=== PATIENT | female | born 1940 | race Caucasian/White ===

== ENCOUNTER 2019-08-28 10:27 | Inpatient (IN) | payer OTHER, SELFPAY ==
[~2019-08-28] VITALS: Ht 157.5 cm; Wt 80.7 kg
[2019-08-28 10:31] VITALS: BP_SYST 167
[2019-08-28] MEDS ORDERED: LISI-600 PO (10:50)
[2019-08-28] MEDS ORDERED: DILT120C89 PO (10:50)
[2019-08-28] MEDS ORDERED: AMLO5TAB4 PO (10:50)
[2019-08-28] MEDS ORDERED: SSREG SUBCUT (10:52)
[2019-08-28] MEDS ORDERED: SIMV20TA2 PO (10:52)
[2019-08-28] MEDS ORDERED: DONE10TA44 PO (10:52)
[2019-08-28 11:11] LABS: HEMOGLOBIN 8.3 g/dL (12.0-16.0); MEAN CORPUSCULAR HEMOGLOBIN 30 pg (27-31); MEAN CORPUSCULAR HGB CONC 32 % (32-36); MEAN CORPUSCULAR VOLUME 93 fL (79.0-98.0); PLATELET COUNT (AUTO) 302 K/uL (130-430); RED CELL DISTRIBUTION WIDTH 15.5 % (9.0-15.0); WHITE BLOOD COUNT (AUTO) 15.1 K/uL (4.8-10.8)
[2019-08-28 11:32] LABS: ANION GAP 3 (5-15); CALCIUM 8.1 mg/dL (8.4-11.0); CHLORIDE 109 mmol/L (98-107); GLUCOSE 148 mg/dL (70-99); POTASSIUM 4.8 mmol/L (3.5-5.1); SODIUM SERUM 142 mmol/L (136-145); UREA NITROGEN, BLOOD 33 mg/dL (8-21)
[2019-08-28 11:33] LABS: ATYPICAL LYMPHOCYTES % 0 % (0-0); BAND % (MANUAL) 0 % (0-6); BASOPHILS % (MANUAL) 0 % (0-2); EOSINOPHILS % (MANUAL) 1 % (0-7); LYMPHOCYTES % (MANUAL) 20 % (20-46); MONOCYTES % (MANUAL) 3 % (0-11)
[2019-08-28 11:36] LABS: ALBUMIN 1.2 g/dL (3.4-4.8); ASPARTATE AMINOTRANSFERASE 18 U/L (10-37); PROTHROMBIN TIME 9.8 SECS (9.5-12.5)
[2019-08-28 11:40] LABS: BILIRUBIN,URINE NEGATIVE (NEGATIVE); BLOOD, URINE 2+ (NEGATIVE); CLARITY/URINE CLOUDY (CLEAR); COLOR,URINE YELLOW (YELLOW); GLUCOSE,URINE NEGATIVE (NEGATIVE); KETONES,URINE NEGATIVE (NEGATIVE); LEUKOCYTE ESTERASE ,URINE NEGATIVE (NEGATIVE); NITRITE, URINE NEGATIVE (NEGATIVE); PH,URINE 5.5 (5.0-8.0); PROTEIN URINE 3+ (NEGATIVE); UROBILINOGEN,URINE 0.2 (0.2-1.0)
[2019-08-28 11:46] LABS: ALANINE AMINOTRANSFERASE 12 U/L (12-78); TOTAL BILIRUBIN 0.1 mg/dL (0.0-1.0)
[2019-08-28 11:56] LABS: BACTERIA,URINE FEW /HPF (None Seen); URINE AMORPHOUS URATE 3+ /HPF (None Seen); WBC,URINE 0-3 /HPF (0-3)
[2019-08-28] MEDS ORDERED: DEXTROSE 50% JECT 50 ML DISP.SYRIN IVP PRN (14:15)
[2019-08-28] MEDS ORDERED: IPRATROPIUM BROM 0.5 MG/2.5 ML VIAL.NEB (ATROVENT) INH PRN (14:15)
[2019-08-28] MEDS ORDERED: FUROSEMIDE 20 MG/2 ML VIAL IVP ONE (14:15)
[2019-08-28] MEDS ORDERED: ALBUTEROL SULFATE 0.083% 2.5 MG/3 ML VIAL.NEB INH PRN (14:15)
[2019-08-28] MEDS: ALBUTEROL SULFATE 0.083% 2.5 MG/3 ML VIAL.NEB INH SCH (17:18)
[2019-08-28] MEDS: IPRATROPIUM BROM 0.5 MG/2.5 ML VIAL.NEB (ATROVENT) INH SCH (17:18)
[2019-08-28] MEDS: SIMVASTATIN 20 MG TABLET PO SCH (21:00)
[2019-08-28] MEDS ORDERED: PIPERACILLIN/TAZO 3.375 GM in NS 50 ML IV ONE (21:45)
[2019-08-28] MEDS ORDERED: NACL 0.9% 1,000 ML IV ONE (21:45)
[2019-08-28] MEDS ORDERED: PIPERACILLIN/TAZOBACTAM 3.375 GM/VIAL (ZOSYN) IV ONE (22:43)
[2019-08-28 23:05] VITALS: BP_SYST 152
[2019-08-28 23:15] VITALS: BP_SYST 152
[2019-08-29] VITALS (19 sets, daily range): BP systolic 141–183
[2019-08-29] MEDS: IPRATROPIUM BROM 0.5 MG/2.5 ML VIAL.NEB (ATROVENT) INH SCH ×4 (04:53→23:00)
[2019-08-29] MEDS: ALBUTEROL SULFATE 0.083% 2.5 MG/3 ML VIAL.NEB INH SCH ×4 (04:53→23:00)
[2019-08-29 08:45] LABS: TOTAL IRON BIND. CAPACITY 130 ug/dL (250-450)
[2019-08-29] MEDS: DILTIAZEM HCL 120 MG CAP.SR.24H PO SCH (09:11)
[2019-08-29] MEDS: HEPARIN SODIUM,PORCINE 5000 UNITS/ML VIAL IVP SCH ×2 (09:13→22:16)
[2019-08-29] MEDS: LISINOPRIL 20 MG TABLET PO SCH (09:45)
[2019-08-29] MEDS ORDERED: ONDANSETRON HCL 4 MG/2 ML VIAL IVP PRN (11:45)
[2019-08-29] MEDS ORDERED: ACETAMINOPHEN 325 MG TABLET PO PRN (11:45)
[2019-08-29] MEDS ORDERED: ALBUTEROL SULFATE 0.083% 2.5 MG/3 ML VIAL.NEB INH PRN (11:45)
[2019-08-29] MEDS ORDERED: LORazepam 2 MG/ML VIAL IVP PRN (11:45)
[2019-08-29] MEDS: HYDROcodone/ACETAMIN 5-325 MG TAB (NORCO/ VICODIN) PO PRN (13:00)
[2019-08-29] MEDS: INSULIN REGULAR, HUMAN 100 UNITS/ML, 10 ML VIAL (humuLIN R) SUBCUT PRN (13:13)
[2019-08-29] MEDS: cefTRIAXone 1 GM in D5W 50 ML IV SCH (18:45)
[2019-08-29] MEDS ORDERED: cloNIDine HCL 0.1 MG TABLET PO ONE (19:00)
[2019-08-29] MEDS ORDERED: cloNIDine HCL 0.2 MG TABLET PO PRN (19:00)
[2019-08-29] MEDS ORDERED: cefTRIAXone 1 GM IVPB PREMIX 50 ML IV ONE (20:12)
[2019-08-29] MEDS ORDERED: DOXYCYCLINE HYCLATE 100 MG VIAL IV ONE (20:13)
[2019-08-29] MEDS ORDERED: LINEZOLID 300 ML IV ONE (20:31)
[2019-08-29] MEDS: DOXYCYCLINE HYCLATE 100 MG in D5W 100 ML IV SCH (21:13)
[2019-08-29] MEDS: LINEZOLID 300 ML IV SCH (22:16)
[2019-08-29] MEDS: DONEPEZIL HCL 5 MG TABLET (ARICEPT) PO SCH (22:16)
[2019-08-29] MEDS: SIMVASTATIN 20 MG TABLET PO SCH (22:16)
[2019-08-29] MEDS: METOPROLOL TARTRATE 25 MG TABLET PO SCH (22:17)
[2019-08-30] VITALS: BP_SYST 155
[2019-08-30] MEDS: INSULIN REGULAR, HUMAN 100 UNITS/ML, 10 ML VIAL (humuLIN R) SUBCUT PRN ×3 (00:45→23:42)
[2019-08-30] MEDS: IPRATROPIUM BROM 0.5 MG/2.5 ML VIAL.NEB (ATROVENT) INH SCH ×6 (03:00→23:00)
[2019-08-30] MEDS: ALBUTEROL SULFATE 0.083% 2.5 MG/3 ML VIAL.NEB INH SCH ×6 (03:00→23:00)
[2019-08-30 08:09] VITALS: BP_SYST 171
[2019-08-30] MEDS ORDERED: FUROSEMIDE 20 MG/2 ML VIAL IVP SCH (09:00)
[2019-08-30] MEDS: LISINOPRIL 20 MG TABLET PO SCH (09:40)
[2019-08-30] MEDS: METOPROLOL TARTRATE 25 MG TABLET PO SCH ×2 (09:40→21:00)
[2019-08-30] MEDS: amLODIPine BESYLATE 5 MG TABLET PO SCH (09:40)
[2019-08-30] MEDS: DILTIAZEM HCL 120 MG CAP.SR.24H PO SCH (09:41)
[2019-08-30] MEDS: HEPARIN SODIUM,PORCINE 5000 UNITS/ML VIAL IVP SCH ×2 (09:43→21:00)
[2019-08-30] MEDS: DOXYCYCLINE HYCLATE 100 MG in D5W 100 ML IV SCH ×2 (10:17→21:00)
[2019-08-30] MEDS: LINEZOLID 300 ML IV SCH ×2 (10:17→21:00)
[2019-08-30 12:00] VITALS: BP_SYST 150
[2019-08-30 15:55] VITALS: BP_SYST 167
[2019-08-30] MEDS ORDERED: FUROSEMIDE 40 MG/4 ML VIAL IVP ONE (16:15)
[2019-08-30] MEDS: cefTRIAXone 1 GM in D5W 50 ML IV SCH (17:36)
[2019-08-30 19:45] VITALS: BP_SYST 173
[2019-08-30] MEDS: DONEPEZIL HCL 5 MG TABLET (ARICEPT) PO SCH (21:00)
[2019-08-30] MEDS: SIMVASTATIN 20 MG TABLET PO SCH (21:00)
[2019-08-30] MEDS: NYSTATIN 15 GM TOPICAL POWDER TP SCH (21:00)
[2019-08-30 23:45] VITALS: BP_SYST 170
[2019-08-31 01:01] VITALS: BP_SYST 150
[2019-08-31 02:00] VITALS: BP_SYST 144
[2019-08-31] MEDS: IPRATROPIUM BROM 0.5 MG/2.5 ML VIAL.NEB (ATROVENT) INH SCH ×5 (03:00→19:35)
[2019-08-31] MEDS: ALBUTEROL SULFATE 0.083% 2.5 MG/3 ML VIAL.NEB INH SCH ×5 (03:00→19:35)
[2019-08-31 08:18] LABS: BASOPHILS # (AUTO) 0.1 K/uL (0.0-0.2); BASOPHILS % (AUTO) 0.9 % (0.0-2.0); EOSINOPHILS # (AUTO) 0.1 K/uL (0.0-0.4); EOSINOPHILS % (AUTO) 1.3 % (0.0-4.0); HEMATOCRIT 29.2 % (36-48); HEMOGLOBIN 9.5 g/dL (12.0-16.0); LYMPHOCYTES # (AUTO) 0.9 K/uL (1.0-5.5); MEAN CORPUSCULAR HEMOGLOBIN 30 pg (27-31); MEAN CORPUSCULAR HGB CONC 32 % (32-36); MEAN CORPUSCULAR VOLUME 92 fL (79.0-98.0); MONOCYTES # (AUTO) 0.6 K/uL (0.0-1.0); MONOCYTES % (AUTO) 7.4 % (1.7-9.3); NEUTROPHILS # (AUTO) 6.2 K/uL (1.8-7.7); NEUTROPHILS % (AUTO) 79.4 % (40.0-70.0); PLATELET COUNT (AUTO) 267 K/uL (130-430); RED BLOOD CELL COUNT(AUTO) 3.17 MIL/uL (4.2-6.2); WHITE BLOOD COUNT (AUTO) 7.8 K/uL (4.8-10.8)
[2019-08-31 08:32] VITALS: BP_SYST 155
[2019-08-31 08:34] LABS: ALANINE AMINOTRANSFERASE 10 U/L (12-78); ANION GAP 7 (5-15); ASPARTATE AMINOTRANSFERASE 29 U/L (10-37); C-REACTIVE PROTEIN QUANT 5.4 mg/dL (0-0.5); CALCIUM 7.8 mg/dL (8.4-11.0); CHLORIDE 106 mmol/L (98-107); CREATININE 1.89 mg/dL (0.55-1.30); GLUCOSE 161 mg/dL (70-99); POTASSIUM 4.8 mmol/L (3.5-5.1); SODIUM SERUM 140 mmol/L (136-145); TOTAL BILIRUBIN 0.2 mg/dL (0.0-1.0); UREA NITROGEN, BLOOD 31 mg/dL (8-21)
[2019-08-31] MEDS: DOXYCYCLINE HYCLATE 100 MG in D5W 100 ML IV SCH ×2 (08:42→20:30)
[2019-08-31] MEDS: NYSTATIN 15 GM TOPICAL POWDER TP SCH ×2 (08:43→20:56)
[2019-08-31] MEDS: LINEZOLID 300 ML IV SCH ×2 (08:43→22:09)
[2019-08-31 08:59] LABS: ERYTHROCYTE SEDIMENTATION RATE 74 MM/HR (0-20)
[2019-08-31] MEDS: FUROSEMIDE 20 MG/2 ML VIAL IVP SCH (09:25)
[2019-08-31] MEDS: METOPROLOL TARTRATE 25 MG TABLET PO SCH ×2 (09:26→20:44)
[2019-08-31] MEDS: LISINOPRIL 20 MG TABLET PO SCH (09:26)
[2019-08-31] MEDS: DILTIAZEM HCL 120 MG CAP.SR.24H PO SCH (09:26)
[2019-08-31] MEDS: amLODIPine BESYLATE 5 MG TABLET PO SCH (09:26)
[2019-08-31] MEDS: HEPARIN SODIUM,PORCINE 5000 UNITS/ML VIAL IVP SCH ×2 (09:28→20:56)
[2019-08-31] MEDS: HYDROcodone/ACETAMIN 5-325 MG TAB (NORCO/ VICODIN) PO PRN (09:42)
[2019-08-31 12:00] VITALS: BP_SYST 127
[2019-08-31 14:14] LABS: TOTAL VOLUME 24HRS,URINE 900 mL
[2019-08-31 14:15] LABS: TPROTEIN U,24HR 2939.4 mg/24HR (0-130)
[2019-08-31 14:48] LABS: CREATININE 1.89 mg/dL (0.55-1.30)
[2019-08-31 14:49] LABS: CREATININE CLEARANCE,URINE 4.2 ml/min (80-120); PATIENT WEIGHT 190 LBS
[2019-08-31] MEDS: HYDROcodone/ACETAMIN 10-325 MG TAB PO PRN (16:09)
[2019-08-31 17:14] VITALS: BP_SYST 125
[2019-08-31] MEDS: cefTRIAXone 1 GM in D5W 50 ML IV SCH (18:43)
[2019-08-31] MEDS: INSULIN REGULAR, HUMAN 100 UNITS/ML, 10 ML VIAL (humuLIN R) SUBCUT PRN (18:49)
[2019-08-31 20:25] VITALS: BP_SYST 135
[2019-08-31] MEDS: SIMVASTATIN 20 MG TABLET PO SCH (20:43)
[2019-08-31] MEDS: DONEPEZIL HCL 5 MG TABLET (ARICEPT) PO SCH (20:43)
[2019-09-01 01:28] VITALS: BP_SYST 140
[2019-09-01] MEDS: INSULIN REGULAR, HUMAN 100 UNITS/ML, 10 ML VIAL (humuLIN R) SUBCUT PRN ×3 (06:01→23:09)
[2019-09-01 07:27] LABS: ANION GAP 2 (5-15); CALCIUM 7.7 mg/dL (8.4-11.0); CHLORIDE 106 mmol/L (98-107); CREATININE 2.02 mg/dL (0.55-1.30); GLUCOSE 161 mg/dL (70-99); POTASSIUM 4.3 mmol/L (3.5-5.1); SODIUM SERUM 141 mmol/L (136-145); UREA NITROGEN, BLOOD 32 mg/dL (8-21)
[2019-09-01] MEDS: IPRATROPIUM BROM 0.5 MG/2.5 ML VIAL.NEB (ATROVENT) INH SCH ×4 (07:32→19:27)
[2019-09-01] MEDS: ALBUTEROL SULFATE 0.083% 2.5 MG/3 ML VIAL.NEB INH SCH ×4 (07:32→19:24)
[2019-09-01 08:00] VITALS: BP_SYST 122
[2019-09-01] MEDS: BALSAM PERU/CASTOR OIL 60 GM OINT...G. TP SCH (09:00)
[2019-09-01 09:50] VITALS: BP_SYST 172
[2019-09-01] MEDS: amLODIPine BESYLATE 5 MG TABLET PO SCH (10:21)
[2019-09-01] MEDS: METOPROLOL TARTRATE 25 MG TABLET PO SCH ×2 (10:21→20:17)
[2019-09-01] MEDS: LISINOPRIL 20 MG TABLET PO SCH (10:21)
[2019-09-01] MEDS: LINEZOLID 300 ML IV SCH ×2 (10:23→20:18)
[2019-09-01] MEDS: LEVOFLOXACIN 250 MG TABLET PO SCH (10:23)
[2019-09-01] MEDS: FUROSEMIDE 20 MG/2 ML VIAL IVP SCH (10:23)
[2019-09-01] MEDS: DILTIAZEM HCL 120 MG CAP.SR.24H PO SCH (10:23)
[2019-09-01] MEDS ORDERED: HEPARIN SODIUM,PORCINE 5000 UNITS/ML VIAL SUBCUT ONE (12:00)
[2019-09-01] MEDS: NYSTATIN 15 GM TOPICAL POWDER TP SCH ×2 (12:06→20:18)
[2019-09-01 12:30] VITALS: BP_SYST 114
[2019-09-01 16:52] VITALS: BP_SYST 115
[2019-09-01] MEDS: HYDROcodone/ACETAMIN 10-325 MG TAB PO PRN (16:55)
[2019-09-01 19:30] VITALS: BP_SYST 155
[2019-09-01] MEDS: DONEPEZIL HCL 5 MG TABLET (ARICEPT) PO SCH (20:16)
[2019-09-01] MEDS: SIMVASTATIN 20 MG TABLET PO SCH (20:16)
[2019-09-01] MEDS: HEPARIN SODIUM,PORCINE 5000 UNITS/ML VIAL SUBCUT SCH (20:19)
[2019-09-02 00:59] VITALS: BP_SYST 128
[2019-09-02] MEDS: IPRATROPIUM BROM 0.5 MG/2.5 ML VIAL.NEB (ATROVENT) INH SCH (07:52)
[2019-09-02] MEDS: ALBUTEROL SULFATE 0.083% 2.5 MG/3 ML VIAL.NEB INH SCH (07:53)
[2019-09-02 08:00] VITALS: BP_SYST 139
[2019-09-02] MEDS: LINEZOLID 300 ML IV SCH (08:53)
[2019-09-02] MEDS: FUROSEMIDE 20 MG/2 ML VIAL IVP SCH (12:06)
[2019-09-02] MEDS: LISINOPRIL 20 MG TABLET PO SCH (12:07)
[2019-09-02] MEDS: METOPROLOL TARTRATE 25 MG TABLET PO SCH (12:07)
[2019-09-02] MEDS: amLODIPine BESYLATE 5 MG TABLET PO SCH (12:08)
[2019-09-02] MEDS: LEVOFLOXACIN 250 MG TABLET PO SCH (12:08)
[2019-09-02] MEDS: DILTIAZEM HCL 120 MG CAP.SR.24H PO SCH (12:09)
[2019-09-02] MEDS: HEPARIN SODIUM,PORCINE 5000 UNITS/ML VIAL SUBCUT SCH (12:11)
[2019-09-02] MEDS: HYDROcodone/ACETAMIN 10-325 MG TAB PO PRN (12:15)
[2019-09-02] MEDS: INSULIN REGULAR, HUMAN 100 UNITS/ML, 10 ML VIAL (humuLIN R) SUBCUT PRN (12:16)
[2019-09-02 12:55] VITALS: BP_SYST 125
[2019-09-02 16:31] VITALS: BP_SYST 127
[2019-09-02 17:10] VITALS: BP_SYST 127
[2019-09-02] MEDS: NYSTATIN 15 GM TOPICAL POWDER TP SCH (17:22)
[2019-09-02] MEDS: BALSAM PERU/CASTOR OIL 60 GM OINT...G. TP SCH (17:23)
== END 2019-09-02 18:05 | DRG 871 ==
LOC: EEVIPCON 10:27 → SED 10:27 → EEVIPCON 12:27 → SIC 12:27 → STU 08-29 17:59
PROVIDERS: ADMIT Internal Medicine Hospice and Palliative Medicine; ATTEND Internal Medicine Hospice and Palliative Medicine
PROC: 0W993ZZ Drainage of Right Pleural Cavity, Percutaneous Approach (ICD-10-PCS; principal; 2019-09-02)
DX: A41.9 Sepsis, unspecified organism (principal); I50.43 Acute on chronic combined systolic (congestive) and diastolic (congestive) heart failure; J96.00 Acute respiratory failure, unspecified whether with hypoxia or hypercapnia; G93.41 Metabolic encephalopathy; E43 Unspecified severe protein-calorie malnutrition; J96.01 Acute respiratory failure with hypoxia; I13.0 Hypertensive heart and chronic kidney disease with heart failure and stage 1 through stage 4 chronic kidney disease, or unspecified chronic kidney disease; N17.9 Acute kidney failure, unspecified; J91.8 Pleural effusion in other conditions classified elsewhere; M86.8X8 Other osteomyelitis, other site; Q61.02 Congenital multiple renal cysts; D64.9 Anemia, unspecified; E11.22 Type 2 diabetes mellitus with diabetic chronic kidney disease; E78.5 Hyperlipidemia, unspecified; E83.52 Hypercalcemia; F02.80 Dementia in other diseases classified elsewhere, unspecified severity, without behavioral disturbance, psychotic disturbance, mood disturbance, and anxiety; G30.9 Alzheimer's disease, unspecified; N18.9 Chronic kidney disease, unspecified; K21.9 Gastro-esophageal reflux disease without esophagitis; Z20.828 Contact with and (suspected) exposure to other viral communicable diseases; Z79.899 Other long term (current) drug therapy; Z68.32 Body mass index [BMI] 32.0-32.9, adult
CPT/HCPCS: 32555; 36415; 36600; 71045; 73502; 76770; 80048; 80053; 81000-TC; 82575-TC; 82803-TC; 82962; 83540-TC; 83550-TC; 83605; 83735-TC; 83880; 84100-TC; 84156; 84443-TC; 84484; 85007; 85025; 85027; 85610-TC; 85651-TC; 85730-TC; 86140; 86710; 87040-TC; 87081; 87086; 93005; 93306; 93971; 94640; 94760; 96374; 99285; C1729; G0378; J0696; J1644; J1815; J1940; J2020; J2060; J2543; J3490; J7030; J7060; J7613; U0002

== ENCOUNTER 2019-09-07 12:20 | Inpatient (IN) | payer OTHER, SELFPAY ==
[~2019-09-07] VITALS: Ht 157.5 cm; Wt 89.2 kg
[2019-09-07] VITALS (13 sets, daily range): BP systolic 84–181
[~2019-09-07 12:20] MED LIST: AMLO5TAB4 PO; DILT120C89 PO; DONE10TA44 PO; LISI-600 PO; SIMV20TA2 PO; SSREG SUBCUT
[2019-09-07] MEDS ORDERED: HEPA500015 SUBCUT (12:31)
[2019-09-07] MEDS ORDERED: PRAV40TA PO (12:31)
[2019-09-07 12:53] LABS: BASOPHILS % (AUTO) 0.4 % (0.0-2.0); EOSINOPHILS # (AUTO) 0.1 K/uL (0.0-0.4); HEMATOCRIT 25.8 % (36-48); HEMOGLOBIN 8.3 g/dL (12.0-16.0); LYMPHOCYTES # (AUTO) 1.6 K/uL (1.0-5.5); LYMPHOCYTES % (AUTO) 15.1 % (20.5-51.5); MEAN CORPUSCULAR HEMOGLOBIN 30 pg (27-31); MEAN CORPUSCULAR HGB CONC 32 % (32-36); MEAN CORPUSCULAR VOLUME 94 fL (79.0-98.0); MONOCYTES # (AUTO) 0.9 K/uL (0.0-1.0); MONOCYTES % (AUTO) 8.4 % (1.7-9.3); NEUTROPHILS # (AUTO) 7.8 K/uL (1.8-7.7); NEUTROPHILS % (AUTO) 75.1 % (40.0-70.0); PLATELET COUNT (AUTO) 193 K/uL (130-430); RED BLOOD CELL COUNT(AUTO) 2.76 MIL/uL (4.2-6.2); RED CELL DISTRIBUTION WIDTH 17.1 % (9.0-15.0); WHITE BLOOD COUNT (AUTO) 10.4 K/uL (4.8-10.8)
[2019-09-07 12:59] LABS: ANION GAP 1 (5-15); CHLORIDE 111 mmol/L (98-107); CREATININE 1.88 mg/dL (0.55-1.30); GLUCOSE 138 mg/dL (70-99); POTASSIUM 4.1 mmol/L (3.5-5.1); SODIUM SERUM 145 mmol/L (136-145); UREA NITROGEN, BLOOD 30 mg/dL (8-21)
[2019-09-07 13:08] LABS: ALANINE AMINOTRANSFERASE 15 U/L (12-78); ALBUMIN 1.2 g/dL (3.4-4.8); ASPARTATE AMINOTRANSFERASE 15 U/L (10-37); TOTAL BILIRUBIN 0.1 mg/dL (0.0-1.0)
[2019-09-07 13:10] LABS: BILIRUBIN,URINE NEGATIVE (NEGATIVE); BLOOD, URINE NEGATIVE (NEGATIVE); CLARITY/URINE CLEAR (CLEAR); COLOR,URINE YELLOW (YELLOW); GLUCOSE,URINE NEGATIVE (NEGATIVE); KETONES,URINE NEGATIVE (NEGATIVE); LEUKOCYTE ESTERASE ,URINE 1+ (NEGATIVE); NITRITE, URINE NEGATIVE (NEGATIVE); PROTEIN URINE NEGATIVE (NEGATIVE); UROBILINOGEN,URINE 0.2 (0.2-1.0)
[2019-09-07 13:18] LABS: BACTERIA,URINE MODERATE /HPF (None Seen); RBC,URINE 0-3 /HPF (0-3)
[2019-09-07] MEDS ORDERED: cefTRIAXone 1 GM IVPB PREMIX 50 ML IV ONE (14:15)
[2019-09-07] MEDS ORDERED: ALBUTEROL SULFATE 0.083% 2.5 MG/3 ML VIAL.NEB INH PRN (16:30)
[2019-09-07] MEDS ORDERED: IPRATROPIUM BROM 0.5 MG/2.5 ML VIAL.NEB (ATROVENT) INH PRN (16:30)
[2019-09-07] MEDS ORDERED: NS 500 ML IV ONE (17:45)
[2019-09-07] MEDS ORDERED: PROPOFOL 200MG/ 20ML VIAL (DIPRIVAN) IV ONE (18:00)
[2019-09-07] MEDS: PROPOFOL DRIP 1000 MG/ 100 ML BTL IV PRN (18:13)
[2019-09-07] MEDS ORDERED: SUCCINYLCHOLINE CHLORIDE 20 MG/ML(QUELICIN) IVP ONE (18:50)
[2019-09-07] MEDS ORDERED: ETOMIDATE 20 MG/ 10 ML VIAL (AMIDATE) IVP ONE (18:50)
[2019-09-07] MEDS: IPRATROPIUM BROM 0.5 MG/2.5 ML VIAL.NEB (ATROVENT) INH SCH ×2 (19:30→23:00)
[2019-09-07] MEDS: ALBUTEROL SULFATE 0.083% 2.5 MG/3 ML VIAL.NEB INH SCH ×2 (19:30→23:00)
[2019-09-07] MEDS ORDERED: NS 250 ML IV ONE (20:45)
[2019-09-07] MEDS: FAMOTIDINE PF 20 MG/2 ML VIAL IVP SCH (21:07)
[2019-09-07] MEDS: HEPARIN SODIUM,PORCINE 5000 UNITS/ML VIAL SUBCUT SCH (21:07)
[2019-09-07] MEDS ORDERED: PIPERACILLIN/TAZOBACTAM 2.25 GM VIAL IV ONE (22:59)
[2019-09-08] VITALS (32 sets, daily range): BP systolic 111–180
[2019-09-08] MEDS: PIPERACILLIN/TAZO 2.25G/DEX-IS 50 ML IV SCH ×4 (00:09→18:20)
[2019-09-08] MEDS: PROPOFOL DRIP 1000 MG/ 100 ML BTL IV PRN ×4 (00:12→20:54)
[2019-09-08] MEDS ORDERED: PIPERACILLIN/TAZOBACTAM 2.25 GM VIAL IV ONE (05:29)
[2019-09-08] MEDS: ALBUTEROL SULFATE 0.083% 2.5 MG/3 ML VIAL.NEB INH SCH ×3 (09:47→23:00)
[2019-09-08] MEDS: IPRATROPIUM BROM 0.5 MG/2.5 ML VIAL.NEB (ATROVENT) INH SCH ×3 (09:48→23:00)
[2019-09-08] MEDS ORDERED: fentaNYL CITRATE/PF 100 MCG/2 ML AMP IVP ONE (10:00)
[2019-09-08] MEDS ORDERED: MIDAZOLAM HCL 5 MG/5 ML VIAL IVP ONE (10:00)
[2019-09-08] MEDS: HEPARIN SODIUM,PORCINE 5000 UNITS/ML VIAL SUBCUT SCH ×2 (10:20→20:55)
[2019-09-08] MEDS: DILTIAZEM HCL 120 MG CAP.SR.24H PO SCH (10:20)
[2019-09-08] MEDS: FAMOTIDINE PF 20 MG/2 ML VIAL IVP SCH ×2 (10:21→20:52)
[2019-09-08] MEDS: FUROSEMIDE 20 MG/2 ML VIAL IVP SCH (10:21)
[2019-09-08 11:23] LABS: BASOPHILS % (AUTO) 0.5 % (0.0-2.0); EOSINOPHILS # (AUTO) 0.1 K/uL (0.0-0.4); EOSINOPHILS % (AUTO) 0.8 % (0.0-4.0); HEMOGLOBIN 7.2 g/dL (12.0-16.0); LYMPHOCYTES # (AUTO) 0.8 K/uL (1.0-5.5); LYMPHOCYTES % (AUTO) 9.8 % (20.5-51.5); MEAN CORPUSCULAR HEMOGLOBIN 31 pg (27-31); MEAN CORPUSCULAR HGB CONC 33 % (32-36); MEAN CORPUSCULAR VOLUME 92 fL (79.0-98.0); MONOCYTES # (AUTO) 0.8 K/uL (0.0-1.0); MONOCYTES % (AUTO) 10.6 % (1.7-9.3); NEUTROPHILS # (AUTO) 6.3 K/uL (1.8-7.7); NEUTROPHILS % (AUTO) 78.3 % (40.0-70.0); PLATELET COUNT (AUTO) 147 K/uL (130-430); RED BLOOD CELL COUNT(AUTO) 2.35 MIL/uL (4.2-6.2); RED CELL DISTRIBUTION WIDTH 16.2 % (9.0-15.0)
[2019-09-08 11:27] LABS: HEMATOCRIT 21.5 % (36-48)
[2019-09-08 11:47] LABS: ALANINE AMINOTRANSFERASE 11 U/L (12-78); ALBUMIN 1.1 g/dL (3.4-4.8); ANION GAP 6 (5-15); ASPARTATE AMINOTRANSFERASE 15 U/L (10-37); CALCIUM 7.5 mg/dL (8.4-11.0); CHLORIDE 107 mmol/L (98-107); CREATININE 1.91 mg/dL (0.55-1.30); GLUCOSE 176 mg/dL (70-99); POTASSIUM 3.8 mmol/L (3.5-5.1); SODIUM SERUM 140 mmol/L (136-145); TOTAL BILIRUBIN 0.1 mg/dL (0.0-1.0); UREA NITROGEN, BLOOD 34 mg/dL (8-21)
[2019-09-08] MEDS: fentaNYL CITRATE/PF 100 MCG/2 ML AMP IVP PRN (15:55)
[2019-09-08 18:39] LABS: APPEARANCE,SPUN,BODY FLUID CLEAR (CLEAR); BF APPEARANCE UNSPUN HAZY (CLEAR); BODY FLUID COLOR YELLOW (LT YELLOW); BODY FLUID SOURCE/ TYPE PLEURAL; BODY FLUID TOTAL VOLUME 1025 mL; SOURCE/TYPE ,BODY FLUID PLEURAL
[2019-09-08] MEDS: NACL 0.9% 1,000 ML IV SCH (20:52)
[2019-09-08 22:52] LABS: WBC, BODY FLUID 40 /uL
[2019-09-08 22:53] LABS: EOSINOPHIL, BODY FLUID 0 %; LYMPHOCYTES, BODY FLUID 9 %; MONOCYTES,BODY FLUID 66 %; NEUTROPHIL, BODY FLUID 25 %; RBC, BODY FLUID 583 /uL
[2019-09-09] VITALS (32 sets, daily range): BP systolic 110–183
[2019-09-09] MEDS: PIPERACILLIN/TAZO 2.25G/DEX-IS 50 ML IV SCH ×4 (00:23→17:42)
[2019-09-09] MEDS: MIDAZOLAM HCL 2 MG/2 ML VIAL (VERSED) IVP PRN ×3 (00:45→17:39)
[2019-09-09] MEDS: PROPOFOL DRIP 1000 MG/ 100 ML BTL IV PRN ×2 (01:51→08:05)
[2019-09-09] MEDS: IPRATROPIUM BROM 0.5 MG/2.5 ML VIAL.NEB (ATROVENT) INH SCH ×6 (03:00→23:00)
[2019-09-09] MEDS: ALBUTEROL SULFATE 0.083% 2.5 MG/3 ML VIAL.NEB INH SCH ×6 (03:00→23:00)
[2019-09-09 05:44] LABS: BASOPHILS % (AUTO) 0.5 % (0.0-2.0); EOSINOPHILS # (AUTO) 0.2 K/uL (0.0-0.4); EOSINOPHILS % (AUTO) 1.6 % (0.0-4.0); HEMATOCRIT 26.6 % (36-48); HEMOGLOBIN 8.8 g/dL (12.0-16.0); LYMPHOCYTES # (AUTO) 1.4 K/uL (1.0-5.5); LYMPHOCYTES % (AUTO) 14.5 % (20.5-51.5); MEAN CORPUSCULAR HEMOGLOBIN 30 pg (27-31); MEAN CORPUSCULAR HGB CONC 33 % (32-36); MEAN CORPUSCULAR VOLUME 90 fL (79.0-98.0); MONOCYTES # (AUTO) 1.1 K/uL (0.0-1.0); MONOCYTES % (AUTO) 11.1 % (1.7-9.3); NEUTROPHILS % (AUTO) 72.3 % (40.0-70.0); PLATELET COUNT (AUTO) 148 K/uL (130-430); RED BLOOD CELL COUNT(AUTO) 2.95 MIL/uL (4.2-6.2); WHITE BLOOD COUNT (AUTO) 9.7 K/uL (4.8-10.8)
[2019-09-09 06:07] LABS: ALANINE AMINOTRANSFERASE 11 U/L (12-78); ALBUMIN 1.2 g/dL (3.4-4.8); ANION GAP 4 (5-15); ASPARTATE AMINOTRANSFERASE 13 U/L (10-37); CALCIUM 7.6 mg/dL (8.4-11.0); CHLORIDE 108 mmol/L (98-107); CREATININE 2.08 mg/dL (0.55-1.30); GLUCOSE 207 mg/dL (70-99); POTASSIUM 3.7 mmol/L (3.5-5.1); SODIUM SERUM 141 mmol/L (136-145); TOTAL BILIRUBIN 0.2 mg/dL (0.0-1.0); UREA NITROGEN, BLOOD 35 mg/dL (8-21)
[2019-09-09] MEDS ORDERED: PROPOFOL DRIP 100 ML IV PRN (07:00)
[2019-09-09] MEDS: FAMOTIDINE PF 20 MG/2 ML VIAL IVP SCH ×2 (08:00→20:52)
[2019-09-09] MEDS: FUROSEMIDE 20 MG/2 ML VIAL IVP SCH (08:01)
[2019-09-09] MEDS: DILTIAZEM HCL 120 MG CAP.SR.24H PO SCH (08:26)
[2019-09-09] MEDS: HEPARIN SODIUM,PORCINE 5000 UNITS/ML VIAL SUBCUT SCH ×2 (08:28→20:53)
[2019-09-09] MEDS: NACL 0.9% 1,000 ML IV SCH (08:30)
[2019-09-09] MEDS: fentaNYL CITRATE/PF 100 MCG/2 ML AMP IVP PRN ×2 (09:33→14:07)
[2019-09-09 14:19] LABS: BODY FLUID GLUCOSE 151 mg/dL; BODY FLUID TOTAL PROTEIN 1.5 g/dL
[2019-09-09] MEDS ORDERED: MENTHOL/ZINC OXIDE 113 GM OINT. TP PRN (17:00)
[2019-09-09] MEDS: NYSTATIN 15 GM TOPICAL POWDER TP SCH (21:25)
[2019-09-10] VITALS (29 sets, daily range): BP systolic 106–199
[2019-09-10] MEDS: PIPERACILLIN/TAZO 2.25G/DEX-IS 50 ML IV SCH ×4 (00:05→17:48)
[2019-09-10] MEDS: fentaNYL CITRATE/PF 100 MCG/2 ML AMP IVP PRN (00:06)
[2019-09-10] MEDS: NACL 0.9% 1,000 ML IV SCH (01:52)
[2019-09-10] MEDS: PROPOFOL DRIP 1000 MG/ 100 ML BTL IV PRN (02:57)
[2019-09-10] MEDS: ALBUTEROL SULFATE 0.083% 2.5 MG/3 ML VIAL.NEB INH SCH ×5 (03:00→23:48)
[2019-09-10] MEDS: IPRATROPIUM BROM 0.5 MG/2.5 ML VIAL.NEB (ATROVENT) INH SCH ×5 (03:00→23:48)
[2019-09-10] MEDS ORDERED: hydrALAZINE HCL 20 MG/ML VIAL IVP ONE (03:45)
[2019-09-10] MEDS: DILTIAZEM HCL 120 MG CAP.SR.24H PO SCH (09:54)
[2019-09-10] MEDS: FUROSEMIDE 20 MG/2 ML VIAL IVP SCH (09:55)
[2019-09-10] MEDS: HEPARIN SODIUM,PORCINE 5000 UNITS/ML VIAL SUBCUT SCH ×2 (09:56→21:36)
[2019-09-10] MEDS: NYSTATIN 15 GM TOPICAL POWDER TP SCH ×2 (09:59→21:36)
[2019-09-10] MEDS: FAMOTIDINE PF 20 MG/2 ML VIAL IVP SCH ×2 (09:59→21:35)
[2019-09-10 10:13] LABS: ANION GAP 7 (5-15); CALCIUM 7.3 mg/dL (8.4-11.0); CHLORIDE 109 mmol/L (98-107); CREATININE 2.04 mg/dL (0.55-1.30); GLUCOSE 188 mg/dL (70-99); POTASSIUM 3.3 mmol/L (3.5-5.1); SODIUM SERUM 144 mmol/L (136-145); UREA NITROGEN, BLOOD 31 mg/dL (8-21)
[2019-09-10] MEDS ORDERED: IPRATROPIUM BROM 0.5 MG/2.5 ML VIAL.NEB (ATROVENT) INH PRN (15:00)
[2019-09-10] MEDS ORDERED: ALBUTEROL SULFATE 0.083% 2.5 MG/3 ML VIAL.NEB INH PRN (15:00)
[2019-09-10] MEDS ORDERED: KCL 40 mEq in 100 mL (PREMIX) 100 ML IV ONE (16:30)
[2019-09-10] MEDS: hydrALAZINE HCL 20 MG/ML VIAL IVP PRN (20:40)
[2019-09-11] VITALS (22 sets, daily range): BP systolic 130–177
[2019-09-11] MEDS: PIPERACILLIN/TAZO 2.25G/DEX-IS 50 ML IV SCH ×5 (00:18→23:35)
[2019-09-11 05:54] LABS: BASOPHILS # (AUTO) 0.1 K/uL (0.0-0.2); BASOPHILS % (AUTO) 0.6 % (0.0-2.0); EOSINOPHILS # (AUTO) 0.1 K/uL (0.0-0.4); EOSINOPHILS % (AUTO) 1.4 % (0.0-4.0); HEMATOCRIT 26.4 % (36-48); HEMOGLOBIN 8.8 g/dL (12.0-16.0); LYMPHOCYTES # (AUTO) 1.5 K/uL (1.0-5.5); LYMPHOCYTES % (AUTO) 16.6 % (20.5-51.5); MEAN CORPUSCULAR HEMOGLOBIN 30 pg (27-31); MEAN CORPUSCULAR HGB CONC 33 % (32-36); MEAN CORPUSCULAR VOLUME 91 fL (79.0-98.0); MONOCYTES % (AUTO) 10.3 % (1.7-9.3); NEUTROPHILS # (AUTO) 6.5 K/uL (1.8-7.7); NEUTROPHILS % (AUTO) 71.1 % (40.0-70.0); PLATELET COUNT (AUTO) 143 K/uL (130-430); RED BLOOD CELL COUNT(AUTO) 2.91 MIL/uL (4.2-6.2); RED CELL DISTRIBUTION WIDTH 17.4 % (9.0-15.0); WHITE BLOOD COUNT (AUTO) 9.2 K/uL (4.8-10.8)
[2019-09-11] MEDS: hydrALAZINE HCL 20 MG/ML VIAL IVP PRN ×3 (07:08→23:36)
[2019-09-11] MEDS: IPRATROPIUM BROM 0.5 MG/2.5 ML VIAL.NEB (ATROVENT) INH SCH ×5 (07:22→23:48)
[2019-09-11] MEDS: ALBUTEROL SULFATE 0.083% 2.5 MG/3 ML VIAL.NEB INH SCH ×5 (07:23→23:48)
[2019-09-11] MEDS: DILTIAZEM HCL 120 MG CAP.SR.24H PO SCH (10:16)
[2019-09-11] MEDS: FAMOTIDINE PF 20 MG/2 ML VIAL IVP SCH ×2 (10:17→22:02)
[2019-09-11] MEDS: FUROSEMIDE 20 MG/2 ML VIAL IVP SCH (10:17)
[2019-09-11] MEDS: NACL 0.9% 1,000 ML IV SCH (10:18)
[2019-09-11] MEDS: HEPARIN SODIUM,PORCINE 5000 UNITS/ML VIAL SUBCUT SCH ×2 (10:19→22:05)
[2019-09-11] MEDS: NYSTATIN 15 GM TOPICAL POWDER TP SCH ×2 (10:20→22:03)
[2019-09-12 00:14] VITALS: BP_SYST 189
[2019-09-12] MEDS: IPRATROPIUM BROM 0.5 MG/2.5 ML VIAL.NEB (ATROVENT) INH SCH ×6 (02:09→23:20)
[2019-09-12] MEDS: ALBUTEROL SULFATE 0.083% 2.5 MG/3 ML VIAL.NEB INH SCH ×6 (02:09→23:20)
[2019-09-12 04:00] VITALS: BP_SYST 148
[2019-09-12] MEDS: PIPERACILLIN/TAZO 2.25G/DEX-IS 50 ML IV SCH ×3 (05:14→17:33)
[2019-09-12 08:00] VITALS: BP_SYST 157
[2019-09-12] MEDS: NACL 0.9% 1,000 ML IV SCH (08:43)
[2019-09-12] MEDS: FAMOTIDINE PF 20 MG/2 ML VIAL IVP SCH ×2 (08:44→21:40)
[2019-09-12] MEDS: FUROSEMIDE 20 MG/2 ML VIAL IVP SCH (08:44)
[2019-09-12] MEDS: NYSTATIN 15 GM TOPICAL POWDER TP SCH ×2 (08:45→21:39)
[2019-09-12] MEDS: HEPARIN SODIUM,PORCINE 5000 UNITS/ML VIAL SUBCUT SCH ×2 (08:45→21:42)
[2019-09-12] MEDS: DILTIAZEM HCL 120 MG CAP.SR.24H PO SCH ×2 (08:46→12:31)
[2019-09-12 12:43] VITALS: BP_SYST 148
[2019-09-12] MEDS: hydrALAZINE HCL 20 MG/ML VIAL IVP PRN (15:21)
[2019-09-12 17:13] VITALS: BP_SYST 151
[2019-09-12 20:00] VITALS: BP_SYST 146
[2019-09-13] VITALS (7 sets, daily range): BP systolic 141–188
[2019-09-13] MEDS: PIPERACILLIN/TAZO 2.25G/DEX-IS 50 ML IV SCH ×3 (00:42→11:34)
[2019-09-13] MEDS: hydrALAZINE HCL 20 MG/ML VIAL IVP PRN ×3 (00:43→20:51)
[2019-09-13] MEDS: ZOLPIDEM TARTRATE 5 MG TABLET PO PRN ×2 (01:28→20:50)
[2019-09-13] MEDS: ALBUTEROL SULFATE 0.083% 2.5 MG/3 ML VIAL.NEB INH SCH ×6 (05:46→23:05)
[2019-09-13] MEDS: IPRATROPIUM BROM 0.5 MG/2.5 ML VIAL.NEB (ATROVENT) INH SCH ×6 (05:47→23:05)
[2019-09-13] MEDS: DILTIAZEM HCL 120 MG CAP.SR.24H PO SCH (08:09)
[2019-09-13] MEDS: FUROSEMIDE 20 MG/2 ML VIAL IVP SCH (08:10)
[2019-09-13] MEDS: FAMOTIDINE PF 20 MG/2 ML VIAL IVP SCH ×2 (08:10→20:50)
[2019-09-13] MEDS: NACL 0.9% 1,000 ML IV SCH (08:12)
[2019-09-13] MEDS: HEPARIN SODIUM,PORCINE 5000 UNITS/ML VIAL SUBCUT SCH ×2 (08:16→20:49)
[2019-09-13] MEDS: NYSTATIN 15 GM TOPICAL POWDER TP SCH ×2 (08:17→20:50)
[2019-09-13] MEDS ORDERED: cloNIDine HCL 0.1 MG TABLET PO ONE (11:15)
[2019-09-13] MEDS ORDERED: FUROSEMIDE 20 MG/2 ML VIAL IVP ONE (11:15)
[2019-09-13] MEDS ORDERED: amLODIPine BESYLATE 10 MG TABLET PO ONE (12:00)
[2019-09-13] MEDS ORDERED: cloNIDine HCL 0.1 MG TABLET PO PRN (12:15)
[2019-09-13] MEDS ORDERED: LEVOFLOXACIN 500 MG TABLET PO ONE (13:00)
[2019-09-14 00:37] VITALS: BP_SYST 143
[2019-09-14] MEDS: ALBUTEROL SULFATE 0.083% 2.5 MG/3 ML VIAL.NEB INH SCH ×5 (03:36→19:50)
[2019-09-14] MEDS: IPRATROPIUM BROM 0.5 MG/2.5 ML VIAL.NEB (ATROVENT) INH SCH ×5 (03:36→19:50)
[2019-09-14 08:00] VITALS: BP_SYST 163
[2019-09-14] MEDS ORDERED: LEVOFLOXACIN 500 MG TABLET PO SCH (09:00)
[2019-09-14] MEDS ORDERED: amLODIPine BESYLATE 10 MG TABLET PO SCH (09:00)
[2019-09-14] MEDS: DILTIAZEM HCL 120 MG CAP.SR.24H PO SCH (09:06)
[2019-09-14] MEDS: FAMOTIDINE PF 20 MG/2 ML VIAL IVP SCH ×2 (09:07→20:12)
[2019-09-14] MEDS: FUROSEMIDE 20 MG/2 ML VIAL IVP SCH (09:08)
[2019-09-14] MEDS: NYSTATIN 15 GM TOPICAL POWDER TP SCH ×2 (09:10→20:13)
[2019-09-14] MEDS: HEPARIN SODIUM,PORCINE 5000 UNITS/ML VIAL SUBCUT SCH ×2 (09:12→20:28)
[2019-09-14 12:16] VITALS: BP_SYST 159
[2019-09-14] MEDS ORDERED: LEVO500T89 PO (13:56)
[2019-09-14 16:54] VITALS: BP_SYST 151
[2019-09-14 19:22] VITALS: BP_SYST 163
[2019-09-14 20:29] VITALS: BP_SYST 169
[2019-09-14] MEDS: hydrALAZINE HCL 25 MG TABLET PO ONE ×2 (21:00→21:09)
[2019-09-14] MEDS: hydrALAZINE HCL 20 MG/ML VIAL IVP PRN (21:13)
== END 2019-09-14 21:50 | disposition home health service (06) | DRG 871 ==
LOC: SED 12:20 → EEVIPCON 14:57 → STU 14:57 → SIC 16:20 → STU 09-11 18:15 → SMU 09-13 12:57
PROVIDERS: ADMIT Internal Medicine Hospice and Palliative Medicine; ATTEND Internal Medicine Hospice and Palliative Medicine
PROC: 5A1945Z Respiratory Ventilation, 24-96 Consecutive Hours (ICD-10-PCS; principal; 2019-09-07)
PROC: 02HV33Z Insertion of Infusion Device into Superior Vena Cava, Percutaneous Approach (ICD-10-PCS; 2019-09-07)
PROC: 0BH17EZ Insertion of Endotracheal Airway into Trachea, Via Natural or Artificial Opening (ICD-10-PCS; 2019-09-07)
PROC: B548ZZA Ultrasonography of Superior Vena Cava, Guidance (ICD-10-PCS; 2019-09-07)
PROC: 5A09357 Assistance with Respiratory Ventilation, Less than 24 Consecutive Hours, Continuous Positive Airway Pressure (ICD-10-PCS; 2019-09-07)
PROC: 0W993ZZ Drainage of Right Pleural Cavity, Percutaneous Approach (ICD-10-PCS; 2019-09-08)
PROC: 30233N1 Transfusion of Nonautologous Red Blood Cells into Peripheral Vein, Percutaneous Approach (ICD-10-PCS; 2019-09-08)
DX: A41.9 Sepsis, unspecified organism (principal); J96.21 Acute and chronic respiratory failure with hypoxia; E43 Unspecified severe protein-calorie malnutrition; J69.0 Pneumonitis due to inhalation of food and vomit; J96.22 Acute and chronic respiratory failure with hypercapnia; I13.0 Hypertensive heart and chronic kidney disease with heart failure and stage 1 through stage 4 chronic kidney disease, or unspecified chronic kidney disease; N39.0 Urinary tract infection, site not specified; E87.2 Acidosis; N17.9 Acute kidney failure, unspecified; J91.8 Pleural effusion in other conditions classified elsewhere; J44.1 Chronic obstructive pulmonary disease with (acute) exacerbation; K21.9 Gastro-esophageal reflux disease without esophagitis; G30.9 Alzheimer's disease, unspecified; F32.9 Major depressive disorder, single episode, unspecified; F02.80 Dementia in other diseases classified elsewhere, unspecified severity, without behavioral disturbance, psychotic disturbance, mood disturbance, and anxiety; E78.5 Hyperlipidemia, unspecified; E11.22 Type 2 diabetes mellitus with diabetic chronic kidney disease; R55 Syncope and collapse; D63.1 Anemia in chronic kidney disease; I50.9 Heart failure, unspecified; N18.9 Chronic kidney disease, unspecified; Z79.899 Other long term (current) drug therapy; Z86.718 Personal history of other venous thrombosis and embolism; Z87.01 Personal history of pneumonia (recurrent); Z86.14 Personal history of Methicillin resistant Staphylococcus aureus infection; Z68.36 Body mass index [BMI] 36.0-36.9, adult
CPT/HCPCS: 32555; 36415; 36600; 70450-TC; 71045; 76604; 80048; 80053; 81000-TC; 82042; 82803-TC; 82947-TC; 82962; 83036; 83605; 83880; 84157-TC; 84484; 85025; 85730-TC; 86886; 86900; 86901; 86920; 87040-TC; 87070-TC; 87081; 87086; 87205-TC; 87230-TC; 88108; 89051-TC; 89060-TC; 92610-GN; 93005; 94002; 94003; 94150; 94640; 94660; 94664; 94760; 96365; 99285; C1729; C1751; G0378; J0330; J0360; J0696; J1644; J1940; J2543; J2704; J3010; J3465; J3480; J3490; J7030; J7040; J7050; J7613; P9021